=== PATIENT | male | born 1955 | race Caucasian/White ===

== ENCOUNTER 2016-11-19 11:14 | Outpatient (CLI) | payer MEDICAID, MEDICARE, OTHER ==
[2016-11-19 19:47] LABS: BASOPHILS % (AUTO) 0.5 %; EOSINOPHILS % (AUTO) 1.3 %; HCT - HEMATOCRIT 52.9 % (42.0-52.0); HGB - HEMOGLOBIN 17.5 g/dL (14.0-18.0); LYMPHOCYTES % (AUTO) 29.7 %; MEAN CORPUSCULAR HEMOGLOBIN 30.1 pg (27.0-31.0); MEAN CORPUSCULAR HGB CONC 33.1 g/dL (32.0-36.0); MEAN CORPUSCULAR VOLUME 91.1 fL (80.0-94.0); MEAN PLATELET VOLUME 9.1 fL (7.4-11.4); MONOCYTES % (AUTO) 8.4 %; NEUTROPHILS % (AUTO) 60.1 %; RED CELL DISTRIBUTION WIDTH 16.1 % (12.0-15.0); UNCORRECTED WHITE BLOOD COUNT 10.2 x10^3/uL; WHITE BLOOD COUNT 10.2 x10^3/uL (4.8-10.8)
[2016-11-19 20:15] LABS: ALBUMIN/GLOBULIN RATIO 1.2 (1.0-2.2); BILIRUBIN,TOTAL 0.4 mg/dL (0.2-1.0); BUN - BLOOD UREA NITROGEN 23 mg/dL (6-20); CALCIUM 9.2 mg/dL (8.5-10.3); CARBON DIOXIDE - CO2 28 mmol/L (21-32); CHLORIDE 103 mmol/L (101-111); CREATININE 1.1 mg/dL (0.6-1.2); GFR - MDRD 68 (>89); GLUCOSE 82 mg/dL (70-100); POTASSIUM 4.4 mmol/L (3.5-5.0); SODIUM 139 mmol/L (135-145); TOTAL PROTEIN 7.6 g/dL (6.7-8.2)
[2016-11-19 20:35] LABS: FERRITIN 161.5 ng/mL (23.9-336.2)
[2016-11-19 20:39] LABS: BAND NEUTROPHILS % (MANUAL) 5 %; LYMPHOCYTES % (MANUAL) 37 %; NEUTROPHILS % (MANUAL) 50 %; TOTAL CELLS COUNTED 100
[2016-11-19 20:40] LABS: NP AUTO DIFFERENTIAL? YES; NP MAN DIFFERENTIAL? NO; PLATELET ESTIMATE, MANUAL NORMAL (130-450,000) (NORMAL); PLATELET MORPHOLOGY NORMAL APPEARANCE (NORMAL)
[2016-11-19 20:48] LABS: THYROID STIMULATING HORMONE 1.07 uIU/mL (0.34-5.60)
== END 2016-11-19 11:15 | disposition home or self-care (01) ==
LOC: LAB.WCP 11:14
PROVIDERS: ATTEND Family Medicine
DX: R55 Syncope and collapse (principal); R73.9 Hyperglycemia, unspecified
CPT/HCPCS: 36415; 80053; 82728; 84443; 85025

== ENCOUNTER 2017-03-28 15:59 | Emergency (ER) | payer MEDICARE ==
[2017-03-28 16:07] VITALS: BP 151/79
[2017-03-28 16:48] LABS: RAPID STREP SCREEN REAGENT QC YELLOW (YELLOW)
[2017-03-28] MEDS ORDERED: SODIUM CHLORIDE 0.9% 1,000 ML IV ONE (16:59)
[2017-03-28] MEDS ORDERED: IOPAMIDOL-300 100 ML VIAL ONE (17:08)
[2017-03-28] MEDS ORDERED: ACETAMINOPHEN 500 MG TABLET PO STA (18:35)
[2017-03-28] MEDS ORDERED: HYDROcod/ACETAM 5/325 MG TABLET ONE (18:38)
[2017-03-28] MEDS ORDERED: ACETAMINOPHEN 500 MG TABLET PO ONE (18:55)
[2017-03-28] MEDS ORDERED: IOPAMIDOL-300 100 ML VIAL IVP ONE (18:58)
--- NOTE | 2017-03-28 19:36 | ED Physician Documentation ---
History of Present Illness - Stated complaint Stated Complaint: THROAT/EAR PX - Chief complaint Chief Complaint: Heent - History obtained from History obtained from: Patient (pt reports that for the past couple days he has had right sided throat pain, ear pain and enlarged tneder lymphoneds. No cough , no fevers, no rashes,) Review of Systems Constitutional: denies: Fever, Chills Eyes: denies: Photophobia Ears: reports: Ear pain (right). denies: Loss of hearing, Drainage/discharge, Tinnitus/ringing Nose: reports: Congestion. denies: Rhinorrhea / runny nose, Epistaxis, Sinus pressure / pain Throat: reports: Dental pain / toothache (right upper), Sore throat, Swollen tonsils (right) Cardiac: denies: Chest pain / pressure Respiratory: denies: Dyspnea, Cough, Hemoptysis, Wheezing GI: denies: Abdominal Pain, Nausea, Vomiting, Constipation, Diarrhea : denies: Frequency Skin: denies: Rash, Lesions Musculoskeletal: denies: Neck pain PD PAST MEDICAL HISTORY - Past Medical History Cardiovascular: None Respiratory: None Neuro: None Endocrine/Autoimmune: None GI: GERD, Ulcers, Diverticulitis : Benign prostate hypertrophy HEENT: Chronic sinusitis Psych: None Musculoskeletal: Osteoarthritis, Fatigue, Chronic back pain Derm: None - Past Surgical History Past Surgical History: Yes Cardiovascular: Vascular surgery - Present Medications Home Medications: Ambulatory Orders Medication Instructions Recorded Confirmed Aspirin [Aspirin EC] 81 mg PO DAILY 04/03/16 03/19/17 Triamcinolone Acetonide [Nasacort] 1 ea INH DAILY PRN 04/03/16 03/19/17 Amox/Clav 875/125 [Augmentin] 1 each PO Q12H #14 tablet 03/28/17 - Allergies Allergies/Adverse Reactions: Allergies Allergy/AdvReac Type Severity Reaction Status Date / Time codeine Allergy Nausea Verified 03/28/17 16:06 erythromycin base Allergy Nausea Verified 03/28/17 16:06 - Social History Does the pt smoke?: Yes Smoking Status: Current every day smoker Does the pt drink ETOH?: No Does the pt have substance abuse?: No - Immunizations Immunizations are current?: Yes - POLST Patient has POLST: No PD ED PE NORMAL - Vitals Vital signs reviewed: Yes - General General: Alert and oriented X 3, No acute distress, Well developed/nourished - HEENT HEENT: Atraumatic, PERRL, EOMI, Moist mucous membranes. No: Ears normal (left TM normal right TM bulging w/o redness) - Neck Neck: Supple, no meningeal sign. No: No adenopathy (right sided anterior cervical LAD) - Cardiac Cardiac: RRR, No murmur - Respiratory Respiratory: No respiratory distress, Clear bilaterally - Abdomen Abdomen: Soft, Non tender - Derm Derm: Normal color, No rash - Extremities Extremities: No deformity - Neuro Neuro: Alert and oriented X 3, Normal speech Eye Opening: Spontaneous Motor: Obeys Commands Verbal: Oriented GCS Score: 15 Results - Vitals Vitals: Vital Signs - 24 hr 03/28/17 16:04 Temperature 37.3 C Heart Rate 77 Respiratory 18 Rate Blood Pressure 151/79 H O2 Saturation 98 Oxygen O2 Source Room air - Labs Labs: Laboratory Tests 03/28/17 16:22 Group A Strep Rapid Negative - Rads (name of study) CT with contrast of neck Radiology: Prelim report reviewed PD MEDICAL DECISION MAKING - ED course Complexity details: d/w patient ED course: No respiratory distress, is tolerating PO secretions. Gave dose of decadron and oral ABX here in the ER. Pt given return precatuions. No indication for I& D here. Will discharge home Departure - Departure Disposition: 01 Home, Self Care Clinical Impression: Peritonsillar abscess Pharyngitis Qualifiers: Pharyngitis/tonsillitis etiology: unspecified etiology Qualified Code(s): J02.9 - Acute pharyngitis, unspecified Condition: Good Instructions: Peritonsillar Abscess Follow-Up: Maxim Wall MD [Primary Care Provider] - Prescriptions: Amox/Clav 875/125 [Augmentin] 1 each PO Q12H #14 tablet Comments: Take your medication as directed. Return to the ER for any new or worsening symptoms.
--- NOTE | 2017-03-28 19:41 | CT Report ---
EXAM: CT SOFT TISSUE NECKWITH CONTRAST. EXAM DATE: 03/28/2017 06:58 PM. HISTORY: Sore throat and right earache COMPARISONS: CT head without contrast 03/11/2016. TECHNIQUE: Routine soft tissue neck CT protocol. Reconstructions: Coronal and sagittal. IV contrast: 80 cc Isovue-300. In accordance with CT protocol optimization, one or more of the following dose reduction techniques w ere utilized for this exam: automated exposure control, adjustment of mA and/or KV based on patient s ize, or use of iterative reconstructive technique. FINDINGS: There are swallowing motion artifacts at the level of the hypopharynx and supraglottic region/hyoid b one, limiting examination. Asymmetric prominence of the right oral tonsil compatible with tonsillitis. Focal ovoid hypodensity i s seen in the medial right oral tonsil suspicious for representing tonsillar abscess. This measures 0 .8 x 0.6 x 0.4 cm. There is effacement of the right lateral oropharyngeal airway. There is no evidenc e for parapharyngeal abscess or retropharyngeal abscess. Visualized intracranial contents appear unremarkable. Cavernous sinus, orbits, pterygopalatine fossa and infratemporal fossa appear unremarkable. The associate dean space, parotid glands appear unremarkable . Mildly prominent right level II node compared to the left compatible with reactive adenopathy. Nasopharyngeal mucosa appear unremarkable. Hypopharyngeal mucosa, vallecula and perform sinuses obscu red by swallowing motion artifacts. The larynx and and subglottic trachea appear unremarkable. Visualized lungs are clear. Thyroid gland appear unremarkable. Visualized mediastinum appear unremark able. Alignment of the cervical spine within normal. No suspicious lytic or sclerotic osseous lesions. Mini mal degenerative changes at C5-C6. IMPRESSION: 1. Prominent right oral tonsil compatible with tonsillitis. Focal ovoid hypodensity along the medial right tonsil measuring 0.8 x 0.6 x 0.4 cm possibly representing small subcentimeter right peritonsill ar/tonsillar abscess. 2. Reactive right level II lymphadenopathy. 3. Visualization of the hypopharyngeal mucosa and supraglottic region limited by swallowing motion ar tifact during examination/scan. [facility] Referring Provider Line: [phone] SITE ID: [id number]
[2017-03-28] MEDS ORDERED: DEXAMETHASONE 10 MG/ML VIAL PO STA (19:51)
[2017-03-28] MEDS ORDERED: AMOX/CLAV 875 MG/125 MG TABLET PO STA (19:51)
[2017-03-28] MEDS ORDERED: DEXAMETHASONE 10 MG/ML VIAL ONE (19:55)
[2017-03-28] MEDS ORDERED: AMOX/CLAV 875 MG/125 MG TABLET PO ONE (20:01)
== END 2017-03-28 20:07 | disposition home or self-care (01) ==
LOC: ED 15:59
DX: J36 Peritonsillar abscess (principal); F17.200 Nicotine dependence, unspecified, uncomplicated
CPT/HCPCS: 70491; 87070; 87430; 96360; 96361; 99283; A9270; Q9967; 80048; 85025

== ENCOUNTER 2017-08-07 13:43 | Emergency (ER) | payer MEDICARE ==
[2017-08-07 14:10] LABS: BASOPHILS # (AUTO) 0.1 10^3/uL (0.0-0.1); BASOPHILS % (AUTO) 0.7 %; EOSINOPHILS # (AUTO) 0.1 10^3/uL (0.0-0.7); EOSINOPHILS % (AUTO) 1.2 %; HGB - HEMOGLOBIN 16.6 g/dL (14.0-18.0); LYMPHOCYTES # (AUTO) 2.9 10^3/uL (1.5-3.5); LYMPHOCYTES % (AUTO) 28.2 %; MEAN CORPUSCULAR HEMOGLOBIN 29.8 pg (27.0-31.0); MEAN CORPUSCULAR HGB CONC 33.8 g/dL (32.0-36.0); MEAN PLATELET VOLUME 8.1 fL (7.4-11.4); MONOCYTES # (AUTO) 0.7 10^3/uL (0.0-1.0); MONOCYTES % (AUTO) 6.8 %; NEUTROPHILS # (AUTO) 6.6 10^3/uL (1.5-6.6); NEUTROPHILS % (AUTO) 63.1 %; PLT - PLATELET COUNT 279 10^3/uL (130-450); RED BLOOD COUNT 5.57 10^6/uL (4.70-6.10); WHITE BLOOD COUNT 10.4 x10^3/uL (4.8-10.8)
--- NOTE | 2017-08-07 14:13 | ED Physician Documentation ---
History of Present Illness - Stated complaint Stated Complaint: ALOC - Chief complaint Chief Complaint: Neuro - Additonal information Additional information: hx from pt 62 male hx polycythmia vera today had memory /mental status abn first noticed on his way tp work at 830 he could not find the job site, when he did eventually get there he had an odd sense or perception like he was watching a show or video game, again with difficulty finding his way later in the Am SO also notes int L leg weakness and head pressure for several days no vision hearing speech abn no numbness or weakness today no ME[employer] CP AP today no med changes no drugs Review of Systems Constitutional: denies: Fever Eyes: denies: Loss of vision Ears: denies: Loss of hearing Cardiac: denies: Chest pain / pressure, Palpitations Respiratory: denies: Dyspnea, Cough GI: denies: Abdominal Pain, Nausea, Vomiting Musculoskeletal: denies: Neck pain, Back pain Neurologic: reports: Confused. denies: Generalized weakness, Focal weakness, Numbness, Difficulty speaking, Headache, Head injury Endocrine: denies: Easy bruising / bleeding Immunocompromised: denies: Immunocompromised PD PAST MEDICAL HISTORY - Past Medical History Past Medical History: Yes Cardiovascular: None, Coronary artery disease Respiratory: None Neuro: None Endocrine/Autoimmune: None GI: GERD, Ulcers, Diverticulitis : Benign prostate hypertrophy HEENT: Chronic sinusitis Psych: None Musculoskeletal: Osteoarthritis, Fatigue, Chronic back pain Derm: None - Past Surgical History Past Surgical History: Yes Cardiovascular: Coronary stent, Vascular surgery - Present Medications Home Medications: Ambulatory Orders Medication Instructions Recorded Confirmed Aspirin [Aspirin EC] 81 mg PO DAILY 04/03/16 08/07/17 Triamcinolone Acetonide [Nasacort] 2 spray JARON DAILY 04/03/16 08/07/17 Acetaminophen 650 mg PO TID PRN 08/07/17 08/07/17 Tadalafil [Cialis] 5 mg PO PRN PRN 08/07/17 08/07/17 - Allergies Allergies/Adverse Reactions: Allergies Allergy/AdvReac Type Severity Reaction Status Date / Time codeine Allergy Nausea Verified 03/28/17 16:06 erythromycin base Allergy Nausea Verified 03/28/17 16:06 - Social History Does the pt smoke?: Yes Smoking Status: Current every day smoker Does the pt drink ETOH?: No Does the pt have substance abuse?: No - Immunizations Immunizations are current?: Yes - POLST Patient has POLST: No PD ED PE NORMAL - Vitals Vital signs reviewed: Yes - General General: Alert and oriented X 3 - HEENT HEENT: PERRL, EOMI - Neck Neck: Supple, no meningeal sign - Cardiac Cardiac: RRR - Respiratory Respiratory: No respiratory distress, Clear bilaterally - Abdomen Abdomen: Soft, Non tender - Derm Derm: Normal color - Neuro Neuro: Alert and oriented X 3, 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, No motor deficit, No sensory deficit, Normal speech, Other (NIHSS zero at 1405) Eye Opening: Spontaneous Motor: Obeys Commands Verbal: Oriented GCS Score: 15 Results - Vitals Vitals: Vital Signs - 24 hr 08/07/17 08/07/17 08/07/17 13:46 15:04 17:04 Temperature 36.3 C L Heart Rate 76 69 69 Respiratory 18 16 14 Rate Blood Pressure 163/76 H 136/71 H 141/79 H O2 Saturation 98 100 99 Oxygen O2 Source Room air - EKG (time done) 1359 Rate: Rate (enter#) Rhythm: NSR (70) Pennock: Normal Intervals: Normal LA QRS: Normal Ischemia: Normal ST segments - Labs Labs: Laboratory Tests 08/07/17 08/07/17 08/07/17 14:05 14:05 14:05 WBC 10.4 RBC 5.57 Hgb 16.6 Hct 49.1 MCV 88.0 MCH 29.8 MCHC 33.8 RDW 16.0 H Plt Count 279 MPV 8.1 Neut # 6.6 Lymph # 2.9 Callahan # 0.7 Eos # 0.1 Baso # 0.1 Absolute Nucleated RBC 0.00 Nucleated RBC % 0.0 PT 11.7 INR 1.0 Sodium 136 Potassium 4.0 Chloride 101 Carbon Dioxide 28 Anion Gap 7.0 BUN 20 Creatinine 1.0 Estimated GFR (MDRD) 76 L Glucose 108 H Calcium 8.9 - Rads (name of study) CTH Radiology: See rad report (neg) CTA head Radiology: See rad report (normal) CTA neck Radiology: See rad report (55% stenosis L subclavian, otherwsie no sig vesel abn , 1 cm consolidation apex lung) PD MEDICAL DECISION MAKING - ED course ED course: pt doing better neg CTH CTAs except subclavian 50% (pt advised) consider ob for MRI but pt states he absolutely cannot tolerate a MRI even an open one even with sedation and his sx are resolved and were very atypical anyway so will dc to fup PMD he also says these kind of sx may be related to his polycythemia, HCT 49.1, he does not usually get phelobotimized until 50 or 60+ he states - tried to call his chief clinical dietitian but not available, pt states he will call them tomorrow Departure - Departure Disposition: Home, Self Care Clinical Impression: Altered mental status Qualifiers: Altered mental status type: disorientation Qualified Code(s): R41.0 - Disorientation, unspecified Condition: Good Comments: Your CT scans and angiograms of your neck and brain did not show a stroke or blockage to put you at risk for a stroke Your heart was in a regular rhythm Your labs were fine for you - your HCT was 49.1 We discussed keeping you for a MRI but you are feeling better and cannot tolerate MRIs so decided to let you go home. Please stay with another responsible adult who can watch you and don't drive for 48 hr. Call your chief clinical dietitian tomorrow to see if you need a therapeutic phelobotomy Forms: Activity restrictions
[2017-08-07 14:16] LABS: PT - PROTHROMBIN TIME 11.7 secs (9.9-12.6)
[2017-08-07 14:19] LABS: CALCIUM 8.9 mg/dL (8.5-10.3)
[2017-08-07] MEDS ORDERED: IOPAMIDOL-300 100 ML VIAL ONE (14:19)
--- NOTE | 2017-08-07 14:28 | CT Report ---
EXAM: CT HEAD EXAM DATE: 08/07/2017 02:12 PM. CLINICAL HISTORY: Confusion. Stroke symptoms. COMPARISON: 03/11/2016. TECHNIQUE: Multiaxial CT images were obtained from the foramen magnum to the vertex. Reformats: Coron al. IV contrast: None. In accordance with CT protocol optimization, one or more of the following dose reduction techniques w ere utilized for this exam: automated exposure control, adjustment of mA and/or KV based on patient s ize, or use of iterative reconstructive technique. FINDINGS: Parenchyma: No intraparenchymal hemorrhage. No evidence of mass, midline shift, or CT findings of inf arction. Kraus-white differentiation is distinct. Extraaxial Spaces: Normal for age. No subdural or epidural collections identified. Ventricles: Normal in size and position. Sinuses and Orbits: Imaged paranasal sinuses, orbits, and mastoids show no significant abnormality. Bones: No evidence of fracture or calvarial defect. Other: None. IMPRESSION: Negative for acute or focal intracranial abnormality by noncontrast CT. [facility] The call report notification system was initiated by Dr. Adair Tracy at 14:24 hrs on 8. The above findings were discussed with Llamon by Dr. Adair Tracy at 14:27 hrs on 08/07/17. Referring Provider Line: [phone] SITE ID: [id number]
--- NOTE | 2017-08-07 14:28 | CT Preliminary Report ---
Exam: CT HEAD W/O STROKE PROTOCOL IMPRESSION: Negative for acute or focal intracranial abnormality by noncontrast CT. [facility] The call report notification system was initiated by Dr. Adair Tracy at 14:24 hrs on 8. The above findings were discussed with Llamon by Dr. Adair Tracy at 14:27 hrs on 08/07/17. SITE ID: [id number]
--- NOTE | 2017-08-07 15:31 | CT Preliminary Report ---
Exam: CT NECK ANGIO IMPRESSION: 1. Mild scattered atherosclerotic change. 2. 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 3. Right carotid circulation: Widely patent. 4. Left carotid circulation: Widely patent. Atherosclerotic calcification at the CCA bifurcation. 5. Right vertebral artery: Widely patent. Slightly larger than the left vertebral artery. 6. Left vertebral artery: Atherosclerotic changes seen at the origin and proximal V2 segment. Mild st enosis is seen at the origin measuring approximately 35%. Moderate stenosis is seen in the proximal V 2 segment measuring approximately 50%. [facility] SITE ID: [id number]
--- NOTE | 2017-08-07 15:35 | CT Preliminary Report ---
Exam: CT HEAD ANGIO IMPRESSION: CT Head with contrast: 1. No abnormal intracranial enhancement. 2. No acute abnormality. CTA Head: 1. Normal CTA of the head. No significant vascular stenosis, dissection, or aneurysm. [facility] SITE ID: [id number]
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
[2017-08-07 17:47] VITALS: BP 145/81
== END 2017-08-07 17:46 | disposition home or self-care (01) ==
LOC: ED 13:43
DX: R41.0 Disorientation, unspecified (principal); I25.10 Atherosclerotic heart disease of native coronary artery without angina pectoris; F17.200 Nicotine dependence, unspecified, uncomplicated; Z95.5 Presence of coronary angioplasty implant and graft; Z79.82 Long term (current) use of aspirin
CPT/HCPCS: 36415; 70450; 70496; 70498; 80048; 85025; 85610; 93005; 99284; Q9967

== ENCOUNTER 2018-02-13 08:40 | Outpatient (CLI) | payer MEDICARE ==
[2018-02-13 09:43] LABS: CHOL/HDL RATIO 6.2 (<5.0); CHOLESTEROL 259 mg/dL; HDL CHOLESTEROL 42 mg/dL; LDL CHOLESTEROL,CALCULATED 188 mg/dL; LDL/HDL RATIO 4.5 (<3.6); VLDL CHOLESTEROL 29 mg/dL
== END 2018-02-13 08:41 | disposition home or self-care (01) ==
LOC: LAB 08:40
PROVIDERS: ATTEND Nurse Practitioner
DX: E78.5 Hyperlipidemia, unspecified (principal); R53.83 Other fatigue
CPT/HCPCS: 36415; 80061; 83721; 84443

== ENCOUNTER 2018-02-14 16:36 | Outpatient (CLI) | payer MEDICARE ==
--- NOTE | 2018-02-14 18:47 | Ultrasound Report ---
Reason: CAROTID BRUIT Procedure Date: 02/14/2018 Accession Number: [id number] / [id number] Procedure: US - Carotid Doppler Complete CPT Code: FULL RESULT: EXAM: BILATERAL CAROTID AND VERTEBRAL ARTERY DUPLEX DOPPLER ULTRASOUND: EXAM DATE: 02/14/2018 06:09 PM CLINICAL HISTORY: Carotid bruit. COMPARISON: CTA neck 08/07/2017. TECHNIQUE: Grayscale imaging, color Doppler, and duplex spectral Doppler were used to evaluate the carotid and vertebral arteries bilaterally. Static images were obtained. FINDINGS: Borderline elevated velocities in the left common carotid artery. No significant plaque is identified in the right or left common or internal carotid arteries. Normal antegrade flow is present in bilateral vertebral arteries. VELOCITIES (cm/sec): VELOCITIES: Right: CCA Mid: PSV 117.5 cm/sec. CCA Dist: PSV 103.7 cm/sec. ICA Prox: PSV 81.5 cm/sec, EDV 26.2 cm/sec. ICA Mid: PSV 91.2 cm/sec, EDV 27.2 cm/sec. ICA Dist: PSV 99.7 cm/sec, EDV 28.6 cm/sec. ECA: PSV 99.7 cm/sec. Vertebral Artery: PSV 66.5 cm/sec. RVA flow direction: xAntegrade. ICA/CCA Ratio: 0.85. Left: CCA Mid: PSV 126.5 cm/sec. CCA Dist: PSV 106.1 cm/sec. ICA Prox: PSV 72.1 cm/sec, EDV 20.8 cm/sec. ICA Mid: PSV 75.7 cm/sec, EDV 26.4 cm/sec. ICA Dist: PSV 92.8 cm/sec, EDV 24.7 cm/sec. ECA: PSV 133.8 cm/sec. LVA flow direction: xAntegrade. ICA/CCA Ratio: 0.73. ICA diameter stenosis: Right: <50% by velocity and <70% by NASCET criteria. Left: <50% by velocity and <70% by NASCET criteria. IMPRESSION: 1. No significant bilateral carotid artery plaquing. 2. In the right carotid artery there are no elevated carotid artery velocities to suggest hemodynamically significant stenosis. 3. In the left carotid artery there are no elevated carotid artery velocities to suggest hemodynamically significant stenosis. Borderline elevated peak systolic velocities in the left common carotid artery without evidence of significant atherosclerotic plaque or hemodynamically significant stenosis. 4. Normal antegrade flow is present in bilateral vertebral arteries. General Recommendations: Stenosis =50% ICA - Follow-up ultrasound 6-12 months Stenosis <50% ICA - High Risk Patient with plaque - Follow-up ultrasound 1-2 years Normal Study but High Risk Patient - Follow-up ultrasound 3-5 years Management recommendations and diagnostic criteria are based on current IAC endorsed standards in Carotid Artery Stenosis: Grayscale and Doppler Ultrasound Diagnosis. Validated velocity measurements with angiographic measurements and velocity criteria are extrapolated from diameter data as defined by the Society of Radiologists in Ultrasound Consensus Conference Radiology 2003; 229;340-346. [facility]
--- NOTE | 2018-02-14 21:09 | XRAY Report ---
Reason: PARESTHESIA, UPPER LIMB Procedure Date: 02/14/2018 Accession Number: [id number] / [id number] Procedure: XR - Cervical Spine 2 View CPT Code: FULL RESULT: EXAM: CERVICAL SPINE RADIOGRAPHY EXAM DATE: 02/14/2018 06:05 PM. CLINICAL HISTORY: PARESTHESIA, UPPER LIMB. COMPARISONS: CTA neck 08/07/2017. TECHNIQUE: 3 views. FINDINGS: Alignment: Normal. No spondylolisthesis or scoliosis. Bones/discs/facets: The cervical vertebral bodies and posterior elements are well visualized from the skull base through C7-T1. No fracture, subluxation, or compression deformity. Mild to moderate multilevel degenerative changes, including facet arthropathy, disk space narrowing, and endplate osteophytosis. Degenerative changes appear most significant at C4-C5 and C5-C6. The odontoid process appears intact. Soft Tissues: Rounded ossicles in the nuchal ligament. No prevertebral soft tissue swelling. The visualized lung apices are clear. IMPRESSION: No acute fracture, subluxation, or compression deformity of the cervical spine. Mild to moderate multilevel degenerative joint and disk disease. RADIA
--- NOTE | 2018-02-16 10:10 | Ultrasound Report ---
Reason: PERIPHERAL VASCULAR DISEASE Procedure Date: 02/14/2018 Accession Number: [id number] / [id number] Procedure: US - Duplex Lwr Ext Arterial Bilat CPT Code: FULL RESULT: EXAM: BILATERAL LOWER EXTREMITY ARTERIAL DOPPLER ULTRASOUND EXAM DATE: 02/14/2018 06:17 PM. CLINICAL HISTORY: PERIPHERAL VASCULAR DISEASE. COMPARISON: None. TECHNIQUE: Real-time sonographic vascular imaging was performed by the mechanical meter tester, utilizing color-flow, Doppler flow, and spectral analysis. Multiple account representative static images were saved for review. FINDINGS: Arterial waveforms throughout the right lower extremity are preserved to the level of the ankle with 3 vessel patency to the ankle and subjectively no significant atherosclerosis. Good waveform is detected in the right dorsalis pedis artery. In the left lower extremity there is focalechogenic atherosclerotic plaque in the common femoral artery and SFA. The left anterior tibial artery is not identified. Right Lower Extremity: RESTAURANT KITCHEN AND SERVICE MANAGER: PSV 140.0 cm/sec. PSFA: PSV 78.6 cm/sec. MSFA: PSV 71.4 cm/sec. DSFA: PSV 110.2 cm/sec. PFA: PSV 104.3 cm/sec. POP: PSV 53.6 cm/sec. CHARLES: PSV 53.8 cm/sec. DOT COMPLIANCE MANAGER: PSV 32.3 cm/sec. PER: PSV 44.1 cm/sec. Left Lower Extremity: RESTAURANT KITCHEN AND SERVICE MANAGER: PSV 141.0 cm/sec. PSFA: PSV 62 cm/sec. MSFA: PSV 83.7 cm/sec. DSFA: PSV 98.4 cm/sec. PFA: PSV 60.0 cm/sec. POP: PSV 49.0 cm/sec. CHARLES: Not seen. DOT COMPLIANCE MANAGER: PSV 32.5 cm/sec. PER: PSV 30.8 cm/sec. DPA: PSV 25.8 cm/sec. IMPRESSION: Preserved upstrokes with three-vessel perfusion to the right ankle and at least two-vessel perfusion to the left ankle with preserved dorsalis pedis pulses bilaterally. RADIA
== END 2018-02-14 16:37 | disposition home or self-care (01) ==
LOC: DI 16:36
PROVIDERS: ATTEND Nurse Practitioner
DX: I73.9 Peripheral vascular disease, unspecified (principal); R09.89 Other specified symptoms and signs involving the circulatory and respiratory systems; R20.2 Paresthesia of skin; M50.321 Other cervical disc degeneration at C4-C5 level
CPT/HCPCS: 72040; 93880; 93925

== ENCOUNTER 2018-02-16 13:34 | Outpatient (CLI) | payer MEDICARE ==
--- NOTE | 2018-02-16 13:51 | Ultrasound Report ---
Reason: PERIPHERAL VASCULAR DISEASE Procedure Date: 02/16/2018 Accession Number: [id number] / [id number] Procedure: US - Duplex Aorta Complete CPT Code: FULL RESULT: EXAM: AORTIC DOPPLER ULTRASOUND EXAM DATE: 02/16/2018 10:49 AM. CLINICAL HISTORY: Peripheral vascular disease. COMPARISON: None. TECHNIQUE: Real-time sonographic imaging of retroperitoneal vascular structures, including color-flow, Doppler flow and spectral analysis was performed by the hand spray operator. Multiple benefits representative static images were saved for review. FINDINGS: Aorta: The abdominal aorta was adequately visualized. There is no abdominal aortic aneurysm. Focal atherosclerotic plaque is seen. The patient is status post right and left common iliac artery stenting with no evidence of stent occlusion or stenosis. Aorta: Proximal: Sagittal PA: 2.3 cm. Mid: Transverse: 1.5 x 1.6 cm. Distal: Transverse: 1.8 x 1.7 cm. Caliber WNL: Yes. Plaque visualized: Yes. Iliacs: Right Iliac: Transverse: 0.8 x 0.8 cm. Left Iliac: Transverse: 0.9 x 0.9 cm. Doppler: Proximal Aorta PSV 80 cm/sec. Mid Aorta PSV: 85 cm/sec. Distal Aorta PSV: 63 cm/sec. Proximal RCIA PSV: 60 cm/sec. Proximal LCIA PSV: 61 cm/sec. Iliac Vessels: The visualized proximal common iliac arteries are normal in caliber. Other: None. IMPRESSION: No evidence of abdominal aortic aneurysm. Patent iliac stents. RADIA
== END 2018-02-16 13:35 | disposition home or self-care (01) ==
LOC: DI 13:34
PROVIDERS: ATTEND Nurse Practitioner
DX: I73.9 Peripheral vascular disease, unspecified (principal)
CPT/HCPCS: 93978

== ENCOUNTER 2019-03-30 09:04 | Outpatient (CLI) | payer MEDICARE ==
[2019-03-30 09:59] VITALS: BP 129/83
--- NOTE | 2019-03-30 09:59 | SLEEP CARE CONSULTATION ---
Information from patient questionnaire entered by Cady Nunes. I have reviewed and concur with the information entered by Cady Nunes. This document represents the service I personally performed and the decisions made by me, Dacia Schafer MD, [facility]. History of Present Illness Reason for Visit: New patient Time it takes to fall asleep: minutes Snores at night: Yes Observed to quit breathing while asleep: Yes Number of times waking at night: 1-2 Reasons for waking at night: reports: Pain, Bathroom Toss, Turn, or Twitch while sleeping: No Recalls having dreams: Yes Usually gets out of bed at: 0600 Feels refreshed in the morning: No Morning headache: No Sleepy or fatigued during the day: Yes Ever fallen asleep while driving: No Takes day naps: No Dreams during day naps: No Prior sleep studies: No Additional HPI information: I had the pleasure of seeing Mr. Ledesma today regarding the possibility of him having a sleep disorder. As you know, he is a 63 year old gentleman who has polycythemia. He does smoke cigarettes. The patient tells me that he normally goes to bed around 9 - 10 pm, and it takes him approximately just a few minutes to fall asleep. He has not been told that he snores loudly and irregularly at night. He has also been observed to stop breathing in his sleep. His girlfrien ds have to sleep separately. He can recall waking up on the average of 1 - 2 times during the night. Most of the time he wakes up because of having to use the bathroom and back pain. He has never awakened because of his own snoring, choking, or having to gasp for air. There is not a lot of tossing and turning in his sleep. No somniloquy (sleep talking) or somnambulism (sleep walking). Generally he can recall having dreams. In the morning he usually gets up out of the bed around 6 a.m. not feeling refreshed nor rested. He usually does not have a morning headache. During the day he complains of feeling sleepy and fatigued. His score on Kingsbury Sleepiness Scale is 0 out of 24. He has never fallen asleep while driving nor has had any accident due to sleepiness. He usually does not take naps during the day. Upon falling asleep during the day he denies having vivid dreams. He has never had sleep paralysis, experienced cataplexy or symptoms of restless leg syndrome. He denies having impaired concentration during the day. Subjective Initial Kings[place] Sleepiness Scale score: 0 Past Medical History Past Medical History: reports: Claustrophobia, Arthritis, Other (PAD, Back trouble) Social History The patient's occupation is not employed. Patient is Single and lives in [place]. Have you smoked in the past 12 months: Yes Cigarettes per day (20/pack): 20 Years of smokin Smoking Pack Years: 30.0 Alcohol use: No Caffeine use: Yes Caffeine amount and frequency: 3 cups coffee/day Family History Family history of sleep disordered breathing: No Allergies and Home Medications Drug allergies reviewed: Yes Home medication list reviewed: Yes Allergy and home medication list: Meds: aspirin and Tylenol Review of Systems Cardiovascular: denies: high blood pressure, palpitations, chest pain, irregular heart rate or pulse, leg or foot swelling, have to sleep sitting up, other Respiratory: denies: shortness of breath, wheeze, sputum production, chronic cough, other Gastrointestinal: denies: heartburn, difficulty swallowing, nausea, vomitting, diarrhea, abdominal pain, other Urinary: denies: incontinence, frequency, urgency, impotence, other Neurological: denies: headaches, seizure, head trauma, disorientation, speech dysfunction, gait or balance problems, fainting or unconsciousness, other Psychiatric: denies: Attention Deficit Hyperactivity, anxiety, depression, mood disorder, claustrophobia, other Ear/Nose/Throat: reports: nasal congestion, sinus problems Endocrine: denies: thyroid disease, history of goiter, sluggishness, too hot or cold, excessive thirst, increased appetite, increased urination, unexplained weakness, other Musculoskeletal: reports: neck pain, back pain Immunologic: denies: sneezing, rash, itching, allergies to food or environment, other Physical Exam Vital signs obtained and entered by: Dr. Schafer Blood Pressure: 129/83 Cuff size: regular Heart Rate: 77 O2 Saturation: 98 Height: 5 ft 8 in Weight: 160 lb Body Mass Index: 24.3 BMI Classification: Healthy weight Neck circumference: 15 HEENT: No craniofacial malformation Nostrils: patent to airflow Turbinates: normal Septum: midline Mouth and throat: narrow oropharynx Soft palate: long Hard palate: normal Uvula: normal Uvula visualization: 100% Mallampati Class I Tongue: enlarged in size with teeth greer on lateral edges Tonsils: absent bilaterally Chin and jaw: normal size and position Neck: normal w/o lymphadenopathy or thyromegaly Heart: regular rate and rhythm Lungs: clear bilaterally Abdomen: soft, non-tender Extremities: no edema or clubbing Neurologic: intact, no focal deficits Impression and Plan IMPRESSION: 1. Suspected Obstructive Sleep Apnea-Hypopnea Syndrome, as suggested by history of loud and irregular snoring, observed cessation of breath while asleep, and polycythemia. Narrow oropharynx and obesity is a common predisposing factor for obstructive sleep apnea-hypopnea syndrome. Pathophysiology of sleep-disordered breathing was discussed. I recommend proceeding to polysomnography to confirm the diagnosis and to assess severity. I informed the patient of what the sleep studies involve and after some discussion, he agreed to proceed. Plan: 1. Schedule polysomnography and return in 1 to 2 weeks after the study to discuss result and initiate therapy. 2. Avoid long distance driving or when feeling sleepy. 3. Avoid alcohol, sedative and muscle relaxant around bedtime. 4. Quit smoking cigarettes I spent 100% of this 20 minute visit face to face with the patient with greater than 50% of this was spent time counseling the patient and coordination of care.
== END 2019-03-30 09:05 | disposition home or self-care (01) ==
LOC: SC 09:04
PROVIDERS: ATTEND Internal Medicine Pulmonary Disease
DX: R06.81 Apnea, not elsewhere classified (principal); R06.83 Snoring; D75.1 Secondary polycythemia; F17.210 Nicotine dependence, cigarettes, uncomplicated
CPT/HCPCS: 99203; G0463; 99212

== ENCOUNTER 2019-04-20 09:20 | Emergency (ER) | payer MEDICARE ==
--- NOTE | 2019-04-20 10:03 | ED Physician Documentation ---
PD HPI SYNCOPE - Stated complaint Stated Complaint: SYNCOPE - Chief complaint Chief Complaint: Neuro - History of Present Illness Witnessed: Unwitnessed Timing - onset: Today (just prior to arrival) Duration: Unknown Preceding symptoms: Headache, Other (dizzy) Associated symptoms: Other (dizziness) Contributing factors: Unknown. No: Recent med change, Decreased PO intake, Just stood up Injury occurred: None Severity Comments: moderate Treatment MEDICAL NUMERICAL CONTROL OPERATOR: Other (none) Similar symptoms before: Diagnosis (hx of polycythemia vera and syncope) Recently seen: Not recently seen - Additional information Additional information: Pt was going through his normal routine and sat down in his car. Didn't quite get the door closed and passed out. This has happened before when his blood counts were very high from his polcythemia vera. He then woke up and some time had lapsed. He felt dizzy and the front of his head hurts and he feels congested. Thinks his allergies are acting up. Denies cp, sob, denies abdominal pain, nausea, vomiting, urinary symptoms. Denies fever. Has chronic neck and back pain not worse than usual. Review of Systems Ten Systems: 10 systems reviewed and negative Constitutional: denies: Fever, Chills Eyes: denies: Loss of vision, Decreased vision, Photophobia Cardiac: denies: Chest pain / pressure Respiratory: denies: Dyspnea GI: denies: Abdominal Pain : reports: Reviewed and negative Skin: reports: Reviewed and negative Musculoskeletal: reports: Neck pain, Back pain Neurologic: reports: Syncope, Headache, LOC. denies: Generalized weakness, Focal weakness, Numbness, Difficulty speaking, Seizure, Confused, Altered mental status, Head injury Endocrine: denies: Easy bruising / bleeding Immunocompromised: reports: Reviewed and negative PD PAST MEDICAL HISTORY - Past Medical History Cardiovascular: None, Coronary artery disease Respiratory: None Endocrine/Autoimmune: None GI: GERD, Ulcers, Diverticulitis : Benign prostate hypertrophy HEENT: Chronic sinusitis Psych: None Musculoskeletal: Osteoarthritis, Fatigue, Chronic back pain Derm: None - Past Surgical History Past Surgical History: Yes Cardiovascular: Coronary stent, Vascular surgery - Present Medications Home Medications: Ambulatory Orders Medication Instructions Recorded Confirmed Aspirin [Aspirin EC] 81 mg PO DAILY 04/03/16 04/05/19 Acetaminophen 650 mg PO TID PRN 08/07/17 04/05/19 Triamcinolone Acetonide [Nasacort] 10.8 ml INH DAILY 02/08/19 04/05/19 - Allergies Allergies/Adverse Reactions: Allergies Allergy/AdvReac Type Severity Reaction Status Date / Time codeine Allergy Nausea Verified 04/20/19 09:39 erythromycin base Allergy Nausea Verified 04/20/19 09:39 - Social History Does the pt smoke?: Yes Smoking Status: Current every day smoker Does the pt drink ETOH?: No Does the pt have substance abuse?: No - Immunizations Immunizations are current?: Yes - POLST Patient has POLST: No PD ED PE NORMAL - Vitals Vital signs reviewed: Yes - General General: Alert and oriented X 3, No acute distress, Well developed/nourished - HEENT HEENT: Atraumatic, PERRL, Pharynx benign, Other (dry mucous membranes) - Neck Neck: Supple, no meningeal sign, No JVD - Cardiac Cardiac: RRR, No murmur, No gallop, No rub, Strong equal pulses - Respiratory Respiratory: No respiratory distress, Clear bilaterally - Abdomen Abdomen: Soft, Non tender, Non distended - Male Male : Deferred - Rectal Rectal: Deferred - Derm Derm: Normal color, Warm and dry, No rash - Extremities Extremities: No deformity, No tenderness to palpate, Normal ROM s pain, No edema, No calf tenderness / cord - Neuro Neuro: Alert and oriented X 3 Eye Opening: Spontaneous Motor: Obeys Commands Verbal: Oriented GCS Score: 15 - Psych Psych: Normal mood, Normal affect Results - Vitals Vitals: Oxygen O2 Source Room air - EKG (time done) 09:33 Rate: Rate (enter#) (76) Rhythm: NSR [place]: RAD Intervals: Normal DE QRS: Normal Ischemia: Normal ST segments Compare to prior EKG: Unchanged from prior EKG - Labs Labs: Laboratory Tests 04/20/19 04/20/19 04/20/19 11:08 11:08 11:08 WBC 11.3 H RBC 5.89 Hgb 15.8 Hct 50.5 MCV 85.7 MCH 26.8 L MCHC 31.3 L RDW 17.3 H Plt Count 354 MPV 9.8 Neut # (Auto) 8.0 H Lymph # (Auto) 1.9 [place] # (Auto) 1.1 H Eos # (Auto) 0.1 Baso # (Auto) 0.0 Absolute Nucleated RBC 0.00 Nucleated RBC % 0.0 PT 12.7 H INR 1.1 APTT 36.2 H Sodium 141 Potassium 4.3 Chloride 104 Carbon Dioxide 28 Anion Gap 9.0 BUN 15 Creatinine 1.1 Estimated GFR (MDRD) 68 L Glucose 100 Calcium 9.4 Total Bilirubin 0.6 AST 15 ALT 16 Alkaline Phosphatase 89 Total Protein 7.4 Albumin 3.6 Globulin 3.8 Albumin/Globulin Ratio 0.9 L Lipase 41 - Rads (name of study) CT head Radiology: Final report received, See rad report (negative head CT) PD MEDICAL DECISION MAKING - ED course Complexity details: reviewed old records, reviewed results, re-evaluated patient, considered differential, d/w patient ED course: ddx- vasovagal syncope, dehydration, orthostatic syncope, medication adverse effect, electrolyte abnormality, arrhythmia 63 y/o M with hx and exam as documented, well appearing, normal neuro exam, normal vitals, normal ekg, normal labs, hx of polycythemia vera but not significnatly polycythemic today. CT head negative. Pt given fluids, is ambulating and asymptomatic in the ED and is stable for discharge with outpt f/u. Return precautions if recurrent or new concerning symptoms. Departure - Departure Disposition: 01 Home, Self Care Clinical Impression: Polycythemia vera, Dehydration Syncope Qualifiers: Syncope type: unspecified Qualified Code(s): R55 - Syncope and collapse Condition: Stable Record reviewed to determine appropriate education?: Yes Follow-Up: Guerda Monson ARNP, CONSULTING SOLUTION MANAGER-C [Primary Care Provider] - Within 3 Days (recheck your symptoms) Comments: Your head CT was negative. Your labs are overall normal. You do appear to have some mild dehydration. You were given IV fluids for this. Your Hemaglobin here is 15.8 which is on the upper level of normal and per notes from your Notching Machine Operator they do not want to perform phlebotomy until your Hemaglobin increases to 17. You should follow up with your regular provider regarding your symptoms today and for a followup. Discharge Date/Time: 04/20/19 12:23
[2019-04-20] MEDS ORDERED: SODIUM CHLORIDE 0.9% 1,000 ML IV ONE (10:20)
[2019-04-20 11:13] LABS: BASOPHILS % (AUTO) 0.4 %; EOSINOPHILS # (AUTO) 0.1 10^3/uL (0.0-0.7); HGB - HEMOGLOBIN 15.8 g/dL (14.0-18.0); LYMPHOCYTES # (AUTO) 1.9 10^3/uL (1.5-3.5); MEAN CORPUSCULAR HEMOGLOBIN 26.8 pg (27.0-31.0); MEAN CORPUSCULAR HGB CONC 31.3 g/dL (32.0-36.0); MEAN CORPUSCULAR VOLUME 85.7 fL (80.0-94.0); MEAN PLATELET VOLUME 9.8 fL (7.4-11.4); MONOCYTES # (AUTO) 1.1 10^3/uL (0.0-1.0); NEUTROPHILS % (AUTO) 70.8 %; PLT - PLATELET COUNT 354 10^3/uL (130-450); RED BLOOD COUNT 5.89 10^6/uL (4.70-6.10); RED CELL DISTRIBUTION WIDTH 17.3 % (12.0-15.0); WHITE BLOOD COUNT 11.3 x10^3/uL (4.8-10.8)
--- NOTE | 2019-04-20 11:20 | CT Report ---
Reason: headache, syncope Procedure Date: 04/20/2019 Accession Number: [id number] / [id number] Procedure: CT - HEAD WO CPT Code: Final Report FULL RESULT: EXAM: CT HEAD EXAM DATE: 04/20/2019 10:53 AM. CLINICAL HISTORY: Headache, syncope. COMPARISON: HEAD ANGIO 08/07/2017 2:10 PM HEAD W/O STROKE PROTOCOL 08/07/2017 2:10 PM HEAD W/O 03/11/2016 9:11 AM. TECHNIQUE: Multiaxial CT images were obtained from the foramen magnum to the vertex. Reformats: Sagittal and coronal. IV contrast: None. In accordance with CT protocol optimization, one or more of the following dose reduction techniques were utilized for this exam: automated exposure control, adjustment of mA and/or KV based on patient size, or use of iterative reconstructive technique. FINDINGS: Parenchyma: No intraparenchymal hemorrhage. No evidence of mass, midline shift, or CT findings of acute infarction. Kraus-white differentiation is distinct. Diffuse chronic microangiopathic white matter changes are evident. Extraaxial Spaces: Normal for age. No subdural or epidural collections identified. Ventricles: The ventricles and cortical sulci are enlarged, consistent with age-related tissue loss. Sinuses and orbits: Imaged paranasal sinuses, orbits, and mastoids show no significant abnormality. Bones: No evidence of fracture or calvarial defect. Other: None. IMPRESSION: Generalized age-related cortical atrophic changes without evidence of acute intracranial abnormality. RADIA
[2019-04-20 11:21] LABS: INR 1.1 (0.8-1.2); PT - PROTHROMBIN TIME 12.7 secs (9.9-12.6)
[2019-04-20 11:29] LABS: PARTIAL THROMBOPLASTIN TIME 36.2 secs (24.9-33.3)
[2019-04-20 11:34] LABS: ALBUMIN 3.6 g/dL (3.2-5.5); ALBUMIN/GLOBULIN RATIO 0.9 (1.0-2.2); BILIRUBIN,TOTAL 0.6 mg/dL (0.2-1.0); CALCIUM 9.4 mg/dL (8.5-10.3); CREATININE 1.1 mg/dL (0.6-1.2); TOTAL PROTEIN 7.4 g/dL (6.7-8.2)
[2019-04-20 12:15] VITALS: BP 157/79
== END 2019-04-20 12:23 | disposition home or self-care (01) ==
LOC: ED 09:20
DX: R55 Syncope and collapse (principal); E86.0 Dehydration; D45 Polycythemia vera; F17.200 Nicotine dependence, unspecified, uncomplicated; Z79.82 Long term (current) use of aspirin
CPT/HCPCS: 36415; 70450; 80053; 83690; 85025; 85610; 85730; 93005; 96360; 99284

== ENCOUNTER 2019-07-11 09:07 | Outpatient (CLI) | payer MEDICARE ==
[2019-07-11 09:26] LABS: BASOPHILS # (AUTO) 0.1 10^3/uL (0.0-0.1); BASOPHILS % (AUTO) 0.9 %; EOSINOPHILS # (AUTO) 0.2 10^3/uL (0.0-0.7); EOSINOPHILS % (AUTO) 1.7 %; HGB - HEMOGLOBIN 17.8 g/dL (14.0-18.0); LYMPHOCYTES # (AUTO) 3.1 10^3/uL (1.5-3.5); LYMPHOCYTES % (AUTO) 23.8 %; MEAN CORPUSCULAR HEMOGLOBIN 28.8 pg (27.0-31.0); MEAN CORPUSCULAR HGB CONC 33.2 g/dL (32.0-36.0); MEAN CORPUSCULAR VOLUME 86.7 fL (80.0-94.0); MEAN PLATELET VOLUME 9.8 fL (7.4-11.4); MONOCYTES # (AUTO) 1.3 10^3/uL (0.0-1.0); NEUTROPHILS # (AUTO) 7.8 10^3/uL (1.5-6.6); PLT - PLATELET COUNT 330 10^3/uL (130-450); RED BLOOD COUNT 6.18 10^6/uL (4.70-6.10); RED CELL DISTRIBUTION WIDTH 19.8 % (12.0-15.0); WHITE BLOOD COUNT 12.9 x10^3/uL (4.8-10.8)
[2019-07-11 09:44] LABS: ALBUMIN 3.6 g/dL (3.2-5.5); ALKALINE PHOSPHATASE 80 IU/L (42-121); ALT ALANINE AMINOTRANSFERASE 27 IU/L (10-60); AST ASPARTATE AMINOTRANSFERASE 16 IU/L (10-42); BILIRUBIN,TOTAL 0.6 mg/dL (0.2-1.0); BUN - BLOOD UREA NITROGEN 19 mg/dL (6-20); CARBON DIOXIDE - CO2 27 mmol/L (21-32); CHLORIDE 102 mmol/L (101-111); CHOL/HDL RATIO 6.6 (<5.0); CHOLESTEROL 278 mg/dL; CREATININE 1.1 mg/dL (0.6-1.2); GFR - MDRD 67 (>89); GLUCOSE 110 mg/dL (70-100); HDL CHOLESTEROL 42 mg/dL; LDL CHOLESTEROL,CALCULATED 205 mg/dL; LDL/HDL RATIO 4.9 (<3.6); SODIUM 140 mmol/L (135-145); TOTAL PROTEIN 7.3 g/dL (6.7-8.2); VLDL CHOLESTEROL 31 mg/dL
== END 2019-07-11 09:08 | disposition home or self-care (01) ==
LOC: LAB 09:07
PROVIDERS: ATTEND Nurse Practitioner
DX: D75.1 Secondary polycythemia (principal); R73.9 Hyperglycemia, unspecified; E78.5 Hyperlipidemia, unspecified; I73.9 Peripheral vascular disease, unspecified; F17.210 Nicotine dependence, cigarettes, uncomplicated; K27.9 Peptic ulcer, site unspecified, unspecified as acute or chronic, without hemorrhage or perforation
CPT/HCPCS: 36415; 80053; 80061; 83721; 84443; 85025

== ENCOUNTER 2020-08-14 10:38 | Outpatient (CLI) | payer MEDICARE, OTHER | END 2020-08-14 10:39 | disposition home or self-care (01) | LOC: LAB 10:38 | PROVIDERS: ATTEND Nurse Practitioner | DX: D75.1 Secondary polycythemia (principal); R73.9 Hyperglycemia, unspecified; E78.5 Hyperlipidemia, unspecified; I73.9 Peripheral vascular disease, unspecified; K27.9 Peptic ulcer, site unspecified, unspecified as acute or chronic, without hemorrhage or perforation; N40.0 Benign prostatic hyperplasia without lower urinary tract symptoms | CPT/HCPCS: 36415; 80053; 80061; 83036; 83721; 84153; 84443; 85025 ==

== ENCOUNTER 2020-11-15 07:38 | Outpatient (CLI) | payer MEDICARE ==
--- NOTE | 2020-11-15 11:37 | Ultrasound Report ---
PROCEDURE: Abdomen Complete INDICATIONS: HX OF NICOTINE DEPENDECY, HEPTOSPLENOMEGALY TECHNIQUE: Real-time scanning was performed of the abdominal and retroperitoneal organs, with image documentatio n. COMPARISON: None. FINDINGS: Liver: Liver is normal in size. There is a focus of decreased echogenicity within the left lobe harsh uring 10 x 7 x 10 mm. Gallbladder: L bladder demonstrates no stones. Wall thickness is within normal limits measuring 1.4 m m. Biliary ducts: Intrahepatic bile ducts are non-dilated. Extrahepatic bile duct caliber measures 2.6 mm. Normal is 6-7 mm or less in diameter, or 10 mm or less post-cholecystectomy. Pancreas: Visualized portions of the pancreas are sonographically normal. Spleen: Spleen is normal in size and homogeneous in echotexture. Kidneys: Kidneys are normal in size and echotexture. Right kidney measures 11.1 cm long; left kidne y measures 11.1 cm long. No hydronephrosis or nephrolithiasis. No solid masses. Bilateral foci of decreased echogenicity are present the largest on the right measuring 3.6 x 3.1 x 2.8 cm and the larg est on the left measuring 1.0 x 1.0 x 0.9 cm. Aorta: Visualized aorta is normal in caliber at less than 3 cm. Iliacs: Proximal common iliac arteries are normal in caliber at less than 2.5 cm. IVC: Intrahepatic inferior vena cava is patent. Miscellaneous: No free abdominal fluid. Bilateral iliac stents are noted. IMPRESSION: 1. Liver and spleen are normal in size. 2. Simple hepatic and renal cysts. Reviewed by: Piper Gonzalez MD on 11/15/2020 11:35 AM PDT Approved by: Piper Gonzalez MD on 11/15/2020 11:35 AM PDT Station ID: [id number]
== END 2020-11-15 07:39 | disposition home or self-care (01) ==
LOC: DI 07:38
PROVIDERS: ATTEND Internal Medicine
DX: N28.1 Cyst of kidney, acquired (principal); K76.89 Other specified diseases of liver; D45 Polycythemia vera; F17.210 Nicotine dependence, cigarettes, uncomplicated

== ENCOUNTER 2021-02-12 08:15 | Outpatient (CLI) | payer MEDICARE ==
[2021-02-12] MEDS ORDERED: IOVERSOL 320 100 ML VIAL IVP ONE (08:25)
[2021-02-12 08:36] LABS: BASOPHILS # (AUTO) 0.1 10^3/uL (0.0-0.1); BASOPHILS % (AUTO) 0.7 %; EOSINOPHILS # (AUTO) 0.2 10^3/uL (0.0-0.7); EOSINOPHILS % (AUTO) 1.9 %; HCT - HEMATOCRIT 52.7 % (42.0-52.0); HGB - HEMOGLOBIN 17.2 g/dL (14.0-18.0); LYMPHOCYTES # (AUTO) 2.6 10^3/uL (1.5-3.5); LYMPHOCYTES % (AUTO) 22.9 %; MEAN CORPUSCULAR HEMOGLOBIN 28.9 pg (27.0-31.0); MEAN CORPUSCULAR HGB CONC 32.6 g/dL (32.0-36.0); MEAN CORPUSCULAR VOLUME 88.4 fL (80.0-94.0); MEAN PLATELET VOLUME 9.9 fL (7.4-11.4); MONOCYTES # (AUTO) 1.1 10^3/uL (0.0-1.0); MONOCYTES % (AUTO) 9.8 %; NEUTROPHILS # (AUTO) 7.2 10^3/uL (1.5-6.6); NEUTROPHILS % (AUTO) 64.1 %; PLT - PLATELET COUNT 325 10^3/uL (130-450); RED BLOOD COUNT 5.96 10^6/uL (4.70-6.10); RED CELL DISTRIBUTION WIDTH 16.5 % (12.0-15.0); WHITE BLOOD COUNT 11.3 x10^3/uL (4.8-10.8)
[2021-02-12 08:44] LABS: CREATININE 1.1 mg/dL (0.6-1.2)
== END 2021-02-12 08:16 | disposition home or self-care (01) ==
LOC: DI 08:15
PROVIDERS: ATTEND Internal Medicine
DX: F17.210 Nicotine dependence, cigarettes, uncomplicated (principal)
CPT/HCPCS: 36415; 82565; 85025

== ENCOUNTER 2021-03-14 13:22 | Emergency (ER) | payer OTHER, MEDICARE ==
[2021-03-14 13:41] VITALS: BP 138/79
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
== END 2021-03-14 16:15 | disposition home or self-care (01) ==
LOC: ED 13:22
DX: S16.1XXA Strain of muscle, fascia and tendon at neck level, initial encounter (principal); M54.9 Dorsalgia, unspecified; V53.5XXA Driver of pick-up truck or van injured in collision with car, pick-up truck or van in traffic accident, initial encounter; Y92.410 Unspecified street and highway as the place of occurrence of the external cause; I25.10 Atherosclerotic heart disease of native coronary artery without angina pectoris; Z95.5 Presence of coronary angioplasty implant and graft; Z79.82 Long term (current) use of aspirin; F17.200 Nicotine dependence, unspecified, uncomplicated
CPT/HCPCS: 99281; 99282

== ENCOUNTER 2022-03-27 15:02 | Outpatient (CLI) | payer MEDICARE ==
--- NOTE | 2022-03-27 16:11 | XRAY Report ---
PROCEDURE: Cervical Spine 2 View INDICATIONS: NECK AND SHOULDER PX TECHNIQUE: 4 view(s) of the cervical spine were acquired. COMPARISON: None. FINDINGS: Bones: No fractures or dislocations to the T1 level. C4-5, C5-6, and C6-7 demonstrate disc space na rrowing and anterior osteophytes consistent with degenerative disc disease. The lateral masses of C1 appear intact on the odontoid view. No suspicious bony lesions. Soft tissues: No prevertebral soft tissue swelling. IMPRESSION: 1. Disc space narrowing consistent with degenerative disc disease of C4-5, C5-6, and C6-7. 2. No acute abnormality. No evidence of current or prior fracture. Reviewed by: Ilir Valdez on 03/27/2022 4:09 PM PST Approved by: Ilir Valdez on 03/27/2022 4:09 PM [facility] Station ID: [id number]
== END 2022-03-27 15:03 | disposition home or self-care (01) ==
LOC: DI 15:02
PROVIDERS: ATTEND Internal Medicine
DX: R91.8 Other nonspecific abnormal finding of lung field (principal); F17.210 Nicotine dependence, cigarettes, uncomplicated; D75.1 Secondary polycythemia

== ENCOUNTER 2023-10-15 08:28 | Outpatient (CLI) | payer MEDICARE | END 2023-10-15 23:59 | disposition short-term general hospital (02) | LOC: EMS 08:28 | DX: R42 Dizziness and giddiness (principal) | CPT/HCPCS: A0425; A0429 ==